=== PATIENT | male | born 1965 | race Caucasian/White ===

== ENCOUNTER 2018-08-31 13:55 | Emergency (ER) | payer SELFPAY ==
[~2018-08-31] VITALS: Ht 177.8 cm; Wt 96.0 kg
[2018-08-31] MEDS ORDERED: KETOROLAC 60MG/2ML VIAL IM ONE (15:00)
[2018-08-31 15:01] VITALS: BP 133/88
== END 2018-08-31 15:49 | disposition home or self-care (01) ==
LOC: ER 14:02
DX: M25.561 Pain in right knee (principal); F17.200 Nicotine dependence, unspecified, uncomplicated; F12.10 Cannabis abuse, uncomplicated; Z88.0 Allergy status to penicillin
CPT/HCPCS: 73562; 96372; 99283; J1885